=== PATIENT | female | born 1995 | race Caucasian/White ===

== ENCOUNTER 2017-10-08 21:55 | Emergency (ER) | payer OTHER ==
[~2017-10-08] VITALS: Ht 160 cm; Wt 54.4 kg
== END 2017-10-08 23:48 | disposition home or self-care (01) ==
LOC: ER 21:55
DX: S80.01XA Contusion of right knee, initial encounter (principal); W18.39XA Other fall on same level, initial encounter; Y93.89 Activity, other specified; Y92.098 Other place in other non-institutional residence as the place of occurrence of the external cause; Y99.8 Other external cause status